=== PATIENT | male | born 1990 | race Caucasian/White ===

== ENCOUNTER 2021-07-15 20:13 | Inpatient (IN) ==
[2021-07-15] MEDS ORDERED: DIAZEPAM 10 MG/2 ML SYRINGE IV STA ×2 (20:24→21:47)
[2021-07-15] MEDS ORDERED: DIAZEPAM 10 MG/2 ML SYRINGE ONE (20:24)
[2021-07-15] MEDS ORDERED: HALOPERIDOL 5 MG/ML AMP ONE (20:24)
[2021-07-15] MEDS ORDERED: HALOPERIDOL 5 MG/ML AMP IM STA (20:25)
[2021-07-15 20:58] LABS: Basophils # 0.2 10*3/uL (0.0-0.2); Basophils % 0.7 % (0.0-0.8); Eosinophils # 0.4 10*3/uL (0.0-0.87); Eosinophils % 1.4 % (0.00-10.9); Hematocrit 51.4 VOL% (42.0-52.0); Immature Granulocytes % 2.9 %; Immature Granulocytes Absolute 0.84 #; Lymphocytes % 33.9 % (21.2-54.2); Mean Corpuscular HGB Conc 31.1 GM/DL (32-36); Mean Corpuscular Volume 97.7 FL (87-102); Mean Platelet Volume 10.7 FL (9.6-12.0); Monocytes % 6.6 % (1.7-12.7); Neutrophils % 54.5 % (38.7-73.9); Platelet Count 369 T/CUMM (130-400); Red Blood Count 5.26 MC/CUMM (3.8-5.5); Red Cell Distribution Width 12.3 % (9.3-17.3); White Blood Count 29.4 T/CUMM (4-12)
[2021-07-15 21:12] LABS: Bilirubin,Total 0.5 MG/DL (0.20-1.00); Calcium 9.6 MG/DL (8.5-10.1); Osmolality,Calculated 287.4 MOS/KG (273-304); Potassium 3.8 MMOL/L (3.5-5.1); Total Protein 8.6 G/DL (6.4-8.2)
[2021-07-15 21:29] LABS: Band Neutrophils 1 % (0-10); Eosinophils 2 % (0-10); Lymphocytes 35 % (20-55); Reactive Lymphocytes 1+; Segmented Neutrophils 55 % (50-85); Total Cells Counted 100
[2021-07-15 21:30] LABS: Platelet Estimate Adequate
[2021-07-15] MEDS ORDERED: SODIUM CHLORIDE 0.9% 1,000 ML IV STA (21:30)
[2021-07-15 21:31] LABS: Stomatocytes Slight
[2021-07-15] MEDS ORDERED: levETIRAcetam 500 MG/5 ML VIAL IV ONE (21:52)
[2021-07-15 23:02] LABS: Bacteria,Urine Occasional /HPF (Few); Bilirubin,Urine Negative (Negative); Blood, Urine Moderate mg/dL (Negative); Glucose,Urine (UA) Negative (Negative); Granular Casts,Urine 3 /LPF (0-1); Hyaline Casts,Urine 7 /LPF (0-3); Ketones,Urine Negative (Negative); Mucus,Urine Occasional /LPF (Occasional); Nitrite,Urine Negative (Negative); Protein,Urine 30 MG/DL; RBC,Urine <1 /HPF (0-4); Urine Appearance CLEAR (Clear); Urine Color Straw (Yellow); Urine Specific Gravity 1.013 (1.001-1.035); Urine Urobilinogen < 2.0 EU/DL (0.2-1.0)
[2021-07-15 23:09] LABS: Barbiturates Screen,Urine Negative (Negative); Benzodiazepines Screen,Urine Negative (Negative); Cannabinoid Screen,Urine Positive (Negative); Opiate Screen,Urine Negative (Negative); Phencyclidine Screen,Urine Negative (Negative)
[2021-07-16] MEDS ORDERED: GLUCAGON 1 MG VIAL IM PRN (01:48)
[2021-07-16] MEDS ORDERED: SIMETHICONE CHEW 125 MG TABLET PO PRN (01:48)
[2021-07-16] MEDS ORDERED: ACETAMINOPHEN 325 MG TABLET PO PRN (01:48)
[2021-07-16] MEDS ORDERED: DEXTROSE 50% 25 GM/50 ML SYRINGE IV PRN (01:48)
[2021-07-16] MEDS ORDERED: hydrALAZINE 20 MG/1 ML VIAL IV PRN (01:48)
[2021-07-16] MEDS ORDERED: LORazepam 2 MG/1 ML VIAL IV PRN (01:57)
[2021-07-16] MEDS ORDERED: SODIUM CHLORIDE 0.9% 1,000 ML IV SCH (02:00)
[2021-07-16 04:29] LABS: Basophils # 0.1 10*3/uL (0.0-0.2); Basophils % 0.3 % (0.0-0.8); Hematocrit 45.7 VOL% (42.0-52.0); Immature Granulocytes % 1.4 %; Immature Granulocytes Absolute 0.29 #; Lymphocytes # 1.1 10*3/uL (1.4-4.0); Mean Corpuscular HGB Conc 32.8 GM/DL (32-36); Mean Corpuscular Volume 95.4 FL (87-102); Monocytes % 9.8 % (1.7-12.7); Neutrophils % 83.5 % (38.7-73.9); Platelet Count 234 T/CUMM (130-400); Red Blood Count 4.79 MC/CUMM (3.8-5.5); Red Cell Distribution Width 12.5 % (9.3-17.3); White Blood Count 21.4 T/CUMM (4-12)
[2021-07-16 04:46] LABS: Band Neutrophils 2 % (0-10); Hypochromasia Slight; Lymphocytes 5 % (20-55); Microcytosis Slight; Segmented Neutrophils 89 % (50-85); Total Cells Counted 100
[2021-07-16 04:47] LABS: Platelet Estimate Normal
[2021-07-16 04:54] LABS: Calcium 8.4 MG/DL (8.5-10.1); Osmolality,Calculated 286.1 MOS/KG (273-304); Thyroid Stimulating Hormone 0.647 uIU/ml (0.358-3.74)
[2021-07-16] MEDS: ONDANSETRON 4 MG/2 ML VIAL IV PRN (05:30)
[2021-07-16] MEDS ORDERED: cefTRIAXone 1,000 MG in SODIUM CHLORIDE 0.9% 100 ML IV SCH (08:30)
[2021-07-16 08:48] LABS: ABG Base Excess -8.7 MMOL/L (-2.5-2.5); ABG HCO3 15.8 MMOL/L (20-26); ABG Oxygen Saturation 97.8 % (95-100); ABG PCO2 30.4 MM HG (35-48); ABG PH 7.333 (7.35-7.45); ABG PO2 108.3 MM HG (80-95); ABG TCO2 16.7 MMOL/L (23-27)
[2021-07-16] MEDS ORDERED: LACTATED RINGERS 1,000 ML IV ONE (08:58)
[2021-07-16] MEDS ORDERED: AZITHROMYCIN INJ 500 MG in SODIUM CHLORIDE 0.9% 250 ML IV SCH (09:30)
[2021-07-16 09:55] LABS: Calcium 8.4 MG/DL (8.5-10.1); Osmolality,Calculated 284.3 MOS/KG (273-304); Potassium 4.1 MMOL/L (3.5-5.1)
[2021-07-16 09:58] LABS: Albumin 4.1 G/DL (3.4-5.0); Bilirubin,Total 0.8 MG/DL (0.20-1.00); Calcium 8.6 MG/DL (8.5-10.1); Osmolality,Calculated 274.1 MOS/KG (273-304)
[2021-07-16] MEDS: PANTOPRAZOLE 40 MG TABLET PO SCH (10:10)
[2021-07-16] MEDS: SODIUM BICARB INJ 100 MEQ in DEXTROSE 5% 1,000 ML IV SCH (10:30)
[2021-07-16] MEDS: METHADONE 10 MG/1 ML PO SCH (21:39)
[2021-07-16] MEDS ORDERED: DOXYCYCLINE HYCLATE INJ 100 MG in SODIUM CHLORIDE 0.9% 100 ML IV SCH (22:00)
[2021-07-17] MEDS: SODIUM BICARB INJ 100 MEQ in DEXTROSE 5% 1,000 ML IV SCH ×2 (01:45)
[2021-07-17] MEDS: ONDANSETRON 4 MG/2 ML VIAL IV PRN ×2 (04:31→08:40)
[2021-07-17 07:00] LABS: Basophils % 0.2 % (0.0-0.8); Eosinophils % 0.1 % (0.00-10.9); Hematocrit 38.3 VOL% (42.0-52.0); Hemoglobin 13.1 GM/DL (14.0-18.0); Immature Granulocytes % 0.6 %; Immature Granulocytes Absolute 0.09 #; Lymphocytes # 1.8 10*3/uL (1.4-4.0); Mean Corpuscular HGB Conc 34.2 GM/DL (32-36); Mean Corpuscular Volume 89.9 FL (87-102); Mean Platelet Volume 10.6 FL (9.6-12.0); Monocytes % 12.8 % (1.7-12.7); Neutrophils % 74.3 % (38.7-73.9); Platelet Count 191 T/CUMM (130-400); Red Blood Count 4.26 MC/CUMM (3.8-5.5); Red Cell Distribution Width 12.5 % (9.3-17.3); White Blood Count 14.6 T/CUMM (4-12)
[2021-07-17 07:35] LABS: Albumin 3.8 G/DL (3.4-5.0); Bilirubin,Total 1.4 MG/DL (0.20-1.00); Calcium 8.6 MG/DL (8.5-10.1); Osmolality,Calculated 285.1 MOS/KG (273-304); Potassium 3.5 MMOL/L (3.5-5.1)
[2021-07-17] MEDS ORDERED: DOXYCYCLINE HYCLATE 100 MG CAPSULE PO SCH (09:00)
[2021-07-17] MEDS: levETIRAcetam 500 MG TABLET PO SCH ×2 (10:05→20:43)
[2021-07-17] MEDS: PANTOPRAZOLE 40 MG TABLET PO SCH (10:05)
[2021-07-17] MEDS: SODIUM BICARB INJ 50 MEQ in DEXTROSE 5% NACL 0.45% 1,000 ML IV SCH ×2 (10:05→19:32)
[2021-07-17] MEDS: METHADONE 10 MG/1 ML PO SCH (10:20)
[2021-07-18 06:07] LABS: Basophils # 0.1 10*3/uL (0.0-0.2); Basophils % 0.4 % (0.0-0.8); Eosinophils % 0.3 % (0.00-10.9); Hematocrit 40.2 VOL% (42.0-52.0); Hemoglobin 13.9 GM/DL (14.0-18.0); Immature Granulocytes % 0.4 %; Immature Granulocytes Absolute 0.05 #; Lymphocytes % 21.9 % (21.2-54.2); Mean Corpuscular HGB Conc 34.6 GM/DL (32-36); Mean Corpuscular Volume 90.5 FL (87-102); Mean Platelet Volume 10.1 FL (9.6-12.0); Monocytes % 10.8 % (1.7-12.7); Neutrophils % 66.2 % (38.7-73.9); Platelet Count 212 T/CUMM (130-400); Red Blood Count 4.44 MC/CUMM (3.8-5.5); Red Cell Distribution Width 12.2 % (9.3-17.3); White Blood Count 13.8 T/CUMM (4-12)
[2021-07-18 06:26] LABS: Calcium 8.9 MG/DL (8.5-10.1); Potassium 3.4 MMOL/L (3.5-5.1)
[2021-07-18] MEDS: ONDANSETRON 4 MG/2 ML VIAL IV PRN (07:43)
[2021-07-18] MEDS: levETIRAcetam 500 MG TABLET PO SCH (08:54)
[2021-07-18] MEDS: METHADONE 10 MG/1 ML PO SCH (08:54)
[2021-07-18] MEDS: PANTOPRAZOLE 40 MG TABLET PO SCH (08:54)
[2021-07-18] MEDS: SODIUM BICARB INJ 50 MEQ in DEXTROSE 5% NACL 0.45% 1,000 ML IV SCH (11:21)
[2021-07-18 11:57] VITALS: BP 110/89
== END 2021-07-18 14:05 | disposition home or self-care (01) | DRG 101 ==
LOC: EDBD → EDUNIT# → N.ED 20:13 → N.EDINP 20:13 → SUATTDRO 07-16 08:34 → N.ICU 07-16 15:18 → N.3E 07-17 21:26
PROVIDERS: ADMIT Internal Medicine; ATTEND Internal Medicine